=== PATIENT | female | born 1980 | race Caucasian/White ===

== ENCOUNTER 2024-07-31 09:03 | Inpatient (IN) | payer BC, OTHER ==
[2024-07-31] MEDS ORDERED: PITOCIN 30 UNITS/ LR 500 ML 30 UNITS/500 ML PLAST..BAG IV SCH (09:30)
[2024-07-31 10:01] LABS: Absolute Neutrophil Ct (ANC) 5.06 x10^3/uL (1.56-6.13); BASOPHIL % 0.3 % (0.1-1.2); Basophil (Absolute #) 0.02 x10^3/uL (0.01-0.08); Eosinophil % 0.9 % (0.7-5.8); Eosinophil (Absolute #) 0.06 x10^3/uL (0.04-0.36); Hematocrit 32.2 % (34.1-44.9); Hemoglobin 10.6 g/dL (11.2-15.7); IMMATURE GRAN # 0.04 x10^3u/L (0.001-0.031); IMMATURE GRAN % 0.6 % (0.001-0.429); Lymphocyte (Absolute #) 1.29 x10^3/uL (1.18-3.74); Lymphocytes % 19.2 % (19.3-51.7); Mean Cell Volume 89.2 fL (79.4-94.8); Mean Corpuscular Hemoglobin 29.4 pg (25.6-32.2); Mean Corpuscular Hgb Concent. 32.9 g/dL (32.2-35.5); Mean Platelet Volume 9.8 fL (9.4-12.3); Monocyte (Absolute #) 0.25 x10^3/uL (0.24-0.86); Monocytes % 3.7 % (4.7-12.5); Neutrophil % 75.3 % (34.0-71.1); Platelet Count 165 x10^3/uL (182-369); Red Blood Count 3.61 x10^6/uL (3.93-5.22); White Blood Count 6.7 x10^3/uL (3.98-10.04)
[2024-07-31 10:47] LABS: ABO TYPING A; Antibody Screen NEGATIVE (NEGATIVE); RH TYPING POSITIVE
[2024-07-31 10:55] LABS: ALBUMIN 3.7 g/dL (3.5-5.0); BILIRUBIN,TOTAL 0.6 mg/dL (0.2-1.3); Calcium 8.8 mg/dL (8.4-10.2); Creatinine 1 0.67 mg/dL (0.52-1.04); EST GLOMERULAR FILTRATION RATE 109.8 ML/MIN; Potassium 3.7 mmol/L (3.5-5.1); Uric Acid 4.6 mg/dL (2.6-6.0)
[2024-07-31 12:13] LABS: Amphetamine,Urine NEGATIVE (NEGATIVE); Barbiturate,Urine NEGATIVE (NEGATIVE); Benzodiazepine,Urine NEGATIVE (NEGATIVE); Cocaine,Urine NEGATIVE (NEGATIVE); Methadone,Urine NEGATIVE (NEGATIVE); Opiate,Urine NEGATIVE (NEGATIVE); PCP,Urine NEGATIVE (NEGATIVE); THC,Urine NEGATIVE (NEGATIVE)
[2024-07-31] MEDS: Lactated Ringers 1,000 ML IV SCH (16:15)
[2024-07-31] MEDS: CYTOTEC PO SCH (16:36)
[2024-07-31] MEDS ORDERED: BRETHINE 1 MG/ML SQ PRN (17:50)
[2024-07-31] MEDS: PITOCIN 30 UNITS/ LR 500 ML 30 UNITS/500 ML PLAST..BAG IV SCH (18:19)
[2024-07-31] MEDS: Trandate 100 MG PO SCH (21:43)
[2024-07-31] MEDS: OMNIPEN 2 GM*** 2 G in Sodium Chloride 100ML MINI-BAG PLUS 100 ML IV ONE (22:55)
[2024-08-01] MEDS: OMNIPEN 1 GM*** 1 GM in Sodium Chloride 100ML MINI-BAG PLUS 100 ML IV SCH (02:35)
[2024-08-01] MEDS ORDERED: STADOL 2 MG ONE (02:46)
[2024-08-01] MEDS: STADOL 2 MG IV PRN (02:54)
[2024-08-01] MEDS: Lactated Ringers 1,000 ML IV ONE (06:27)
[2024-08-01] MEDS: FENTANYL 2 MCG-BUPIV 0.125%-NS 250 ML Epidur 250 ML EPIDURAL SCH (07:05)
[2024-08-01] MEDS: Zofran 4 MG/2 ML VIAL IV PRN (09:18)
[2024-08-01 11:02] LABS: RPR Non Reactive (Non Reactive)
[2024-08-01] MEDS ORDERED: TRANEXAMIC 1,000 MG/100ML-NACL 1,000 MG/100 ML PIGGYBACK IV ONE (11:43)
[2024-08-01] MEDS ORDERED: Marcaine 0.5%/Epinephrine 10 ML ONE (13:49)
[2024-08-01] MEDS ORDERED: Xylocaine-Mpf 2% 5 Ml Vial ONE (13:49)
[2024-08-01] MEDS ORDERED: DEXMEDETOMIDINE 80 MCG/20ML-NS IV ONE (13:49)
[2024-08-01] MEDS: Ephedrine Sulfate 50 MG/ML IV PRN (14:04)
[2024-08-01] MEDS ORDERED: miSOPROStoL ONE (17:09)
[2024-08-01] MEDS ORDERED: miSOPROStoL PO ONE (17:10)
[2024-08-01] MEDS: Docusate Sodium 100 MG PO SCH (22:42)
[2024-08-01] MEDS: TUCKS TP PRN (23:30)
[2024-08-01] MEDS: Dermoplast Spray TP PRN (23:30)
[2024-08-01] MEDS: LANSINOH 40 GM TOP PRN (23:34)
[2024-08-02 02:22] VITALS: RESP 16
[2024-08-02] MEDS: Tums EX 750 MG PO PRN (02:29)
[2024-08-02] MEDS: TYLENOL EXTRA STRENGTH 500 MG PO PRN (03:54)
[2024-08-02 05:39] LABS: Absolute Neutrophil Ct (ANC) 9.53 x10^3/uL (1.56-6.13); BASOPHIL % 0.2 % (0.1-1.2); Basophil (Absolute #) 0.02 x10^3/uL (0.01-0.08); Eosinophil % 0.3 % (0.7-5.8); Eosinophil (Absolute #) 0.04 x10^3/uL (0.04-0.36); Hematocrit 27.9 % (34.1-44.9); Hemoglobin 9.1 g/dL (11.2-15.7); IMMATURE GRAN # 0.04 x10^3u/L (0.001-0.031); IMMATURE GRAN % 0.3 % (0.001-0.429); Lymphocytes % 15.7 % (19.3-51.7); Mean Cell Volume 88.9 fL (79.4-94.8); Mean Corpuscular Hgb Concent. 32.6 g/dL (32.2-35.5); Mean Platelet Volume 9.1 fL (9.4-12.3); Monocyte (Absolute #) 0.56 x10^3/uL (0.24-0.86); Monocytes % 4.6 % (4.7-12.5); Neutrophil % 78.9 % (34.0-71.1); Platelet Count 152 x10^3/uL (182-369); Red Blood Count 3.14 x10^6/uL (3.93-5.22); Red Cell Distribution Width 15.2 % (11.7-14.4); White Blood Count 12.1 x10^3/uL (3.98-10.04)
[2024-08-02] MEDS: FERREX 150 PO SCH (10:08)
[2024-08-02] MEDS: MOTRIN 400 MG PO PRN (10:09)
--- NOTE | 2024-08-02 10:21 | PCM.NOTE ---
Date and Time: 08/02/24 1019 Subjective Assessment: ppd 1 sp pt resting in bed doing well able to ambulate and tolerate diet vss afebrile abd; soft uterus; firm lochia; mild ext; no clubbing cyanosis or edema hgb; 9.1 a/p sp ppd 1 chronic htn will continue labetolol 100mg bid pt desires to be discharged home today should fu in office in 3 wks Objective Data Vital Signs: Vital Signs - 24 hr Temp Pulse Resp BP BP Pulse Ox 08/02/24 08:00 98.4 F 92 H 16 130/64 97 08/02/24 02:22 98.6 F 80 16 102/55 08/02/24 02:21 98.6 F 80 16 102/55 08/01/24 21:45 98.3 F 106 H 18 132/70 96 08/01/24 20:00 98.0 F 98 H 18 119/57 98 08/01/24 19:45 98.0 F 99 H 18 131/67 100 08/01/24 19:30 98.0 F 90 18 130/59 98 08/01/24 19:15 97.9 F 90 20 130/59 99 08/01/24 18:45 97.9 F 96 H 20 132/69 98 08/01/24 18:30 97.6 F 88 20 113/61 95 08/01/24 18:15 97.9 F 91 H 20 112/60 95 08/01/24 18:00 97.6 F 89 20 112/53 96 08/01/24 17:45 97.6 F 87 20 125/79 95 08/01/24 17:20 98.1 F 82 20 112/55 97 08/01/24 17:15 98.1 F 82 20 112/55 97 08/01/24 17:00 98.1 F 87 20 118/55 97 08/01/24 16:45 98.1 F 87 20 100/50 97 08/01/24 16:30 98.1 F 72 20 91/50 96 08/01/24 16:15 98.1 F 81 20 93/53 94 L 08/01/24 16:00 98.1 F 85 20 97 08/01/24 15:45 98.1 F 78 20 106/55 95 08/01/24 15:30 98.1 F 82 20 89/49 92 L 08/01/24 15:15 98.1 F 82 20 109/52 95 08/01/24 15:00 98.1 F 75 20 109/52 95 08/01/24 14:45 98.1 F 66 20 87/44 95 08/01/24 14:30 98.1 F 65 20 91/53 98 08/01/24 14:15 98.1 F 78 20 102/53 98 08/01/24 14:00 98.1 F 72 20 89/53 98 08/01/24 13:45 98.1 F 72 20 99/57 98 08/01/24 13:30 98.1 F 75 20 119/59 98 08/01/24 13:00 98.1 F 76 20 131/60 98 08/01/24 12:45 97.9 F 85 20 134/64 98 08/01/24 12:30 98.2 F 88 20 134/64 98 08/01/24 12:15 98.2 F 72 20 129/59 98 08/01/24 12:00 98.2 F 82 20 149/67 160/71 98 08/01/24 11:45 98.2 F 80 20 160/71 98 08/01/24 11:30 98.2 F 81 20 172/80 98 08/01/24 11:18 98.2 F 73 20 123/58 98 08/01/24 11:15 98.2 F 84 20 137/65 98 08/01/24 11:00 98.2 F 73 20 123/58 98 08/01/24 10:45 97.8 F 71 20 114/57 98 08/01/24 10:30 98.2 F 71 20 98/54 98 Pain Assessment - Last Documented Pain Intensity [Lower Anterior 0 ] Pain Intensity 3 Pain Scale Used 0-10 Pain Scale Intake and Output: Intake & Output 07/30/24 07/31/24 08/01/24 08/02/24 11:59 11:59 11:59 11:59 Int[place] 61815 6400 Output Total 1400 Balance 05227 5000 Weight 132.449 kg Lab Results: Lab Results-Last 24 Hours 07/31/24 08/02/24 Range/Units 09:55 05:35 WBC 12.1 H (3.98-10.04) x10^3/uL RBC 3.14 L (3.93-5.22) x10^6/uL Hgb 9.1 L (11.2-15.7) g/dL Hct 27.9 L (34.1-44.9) % MCV 88.9 (79.4-94.8) fL MCH 29.0 (25.6-32.2) pg MCHC 32.6 (32.2-35.5) g/dL RDW 15.2 H (11.7-14.4) % Plt Count 152 L (182-369) x10^3/uL MPV 9.1 L (9.4-12.3) fL Gran % 78.9 H (34.0-71.1) % Immature Gran % (Auto) 0.3 (0.001-0.429) % Nucleat RBC Rel Count 0.0 (0.00-0.2) % Eos # (Auto) 0.04 (0.04-0.36) x10^3/uL Immature Gran # (Auto) 0.04 H (0.001-0.031) x10^3u/L Absolute Lymphs (auto) 1.90 (1.18-3.74) x10^3/uL Absolute Monos (auto) 0.56 (0.24-0.86) x10^3/uL Absolute Nucleated RBC 0.00 (0.00-0.012) x10^3u/L Lymphocytes % 15.7 L (19.3-51.7) % Monocytes % 4.6 L (4.7-12.5) % Eosinophils % 0.3 L (0.7-5.8) % Basophils % 0.2 (0.1-1.2) % Absolute Granulocytes 9.53 H (1.56-6.13) x10^3/uL Basophils # 0.02 (0.01-0.08) x10^3/uL RPR Non Reactive (Non Reactive) Assessment/Plan (1) Vaginal delivery Current Visit: Yes Status: Acute Code(s): O80 - ENCOUNTER FOR FULL-TERM UNCOMPLICATED DELIVERY (2) Chronic hypertension affecting Current Visit: Yes Status: Acute Code(s): O10.919 - UNSP PRE-EXISTING HTN COMP , UNSP TRIMESTER
--- NOTE | 2024-08-02 10:26 | PCM.DS ---
Discharge Summary Date of Admission: 08/01/24 07:55 Admitting Physician: ELVIS CAMPOS DO Consults: Consults on Case 08/01/24 06:26 Notify Anesthesia Provider PRN Primary Care Provider: BECKIE ACE DO Allergies Allergies diphenhydramine [From Benadryl] Adverse Reaction (Mild, Verified 07/31/24 09:29) [facility] Hospital Summary - Hospital Course Hospital Course: pt is admitted at 37 wks gestation with chronic htn on labetolol 100mg bid and macrosomia for vaginal cytotec for which she received one dose on jul 31 and one dose of oral cytotec and continued to contract where pitocin was started on aug 01 and subsequently delivered on aug 01 live baby boy with nuchal cord x 1 reduced at 519 pm without complication. pt did receive epidural and was comfortable during her labor. during period hgb was stable at 9.1 and labetolol 100mg bid was restarted and at this time pt able to ambulate and tolerate diet and desires to be discharged home today. there was minimal bleeding noted after delivery and normal amount of bleeding this morning. denies complaints and all questions were answered to her satisfaction. pt advised to fu in office in 3 wks for care as she was also advised to continue her baby aspirin daily and call me if any issues may arise. - Vitals & Intake/Output Vital Signs: Vital Signs Temperature 98.4 F 08/02/24 08:00 Pulse Rate 92 H 08/02/24 08:00 Respiratory Rate 16 08/02/24 08:00 Blood Pressure 130/64 08/02/24 08:00 O2 Sat by Pulse Oximetry 97 08/02/24 08:00 Intake & Output: Intake & Output 07/30/24 07/31/24 08/01/24 08/02/24 11:59 11:59 11:59 11:59 Intake Total 78089 6400 Output Total 1400 Balance 12840 5000 Weight 132.449 kg - Lab Result Diagrams: 08/02/24 05:35 07/31/24 09:55 Lab Results-Last 24 Hrs: Lab Results-Last 24 Hours 07/31/24 08/02/24 Range/Units 09:55 05:35 WBC 12.1 H (3.98-10.04) x10^3/uL RBC 3.14 L (3.93-5.22) x10^6/uL Hgb 9.1 L (11.2-15.7) g/dL Hct 27.9 L (34.1-44.9) % MCV 88.9 (79.4-94.8) fL MCH 29.0 (25.6-32.2) pg MCHC 32.6 (32.2-35.5) g/dL RDW 15.2 H (11.7-14.4) % Plt Count 152 L (182-369) x10^3/uL MPV 9.1 L (9.4-12.3) fL Gran % 78.9 H (34.0-71.1) % Immature Gran % (Auto) 0.3 (0.001-0.429) % Nucleat RBC Rel Count 0.0 (0.00-0.2) % Eos # (Auto) 0.04 (0.04-0.36) x10^3/uL Immature Gran # (Auto) 0.04 H (0.001-0.031) x10^3u/L Absolute Lymphs (auto) 1.90 (1.18-3.74) x10^3/uL Absolute Monos (auto) 0.56 (0.24-0.86) x10^3/uL Absolute Nucleated RBC 0.00 (0.00-0.012) x10^3u/L Lymphocytes % 15.7 L (19.3-51.7) % Monocytes % 4.6 L (4.7-12.5) % Eosinophils % 0.3 L (0.7-5.8) % Basophils % 0.2 (0.1-1.2) % Absolute Granulocytes 9.53 H (1.56-6.13) x10^3/uL Basophils # 0.02 (0.01-0.08) x10^3/uL RPR Non Reactive (Non Reactive) Micro Results-Entire Visit: Microbiology 08/01/24 11:38 Urine Culture - Preliminary Catherized NO GROWTH TO DATE Final Diagnosis/Problem List - Final Discharge Diagnosis/Problem (1) Vaginal delivery Current Visit: Yes Status: Acute Code(s): O80 - ENCOUNTER FOR FULL-TERM UNCOMPLICATED DELIVERY (2) Chronic hypertension affecting Current Visit: Yes Status: Acute Code(s): O10.919 - UNSP PRE-EXISTING HTN COMP , UNSP TRIMESTER - Discharge Disposition: Home, Self-Care Condition: Stable Prescriptions: No Action Labetalol HCl 100 mg [Trandate 100 MG] 100 mg PO BID Aspirin 81 gm Chew [Baby Aspirin 81 mg Chew] 81 mg PO DAILY Fluticasone Propionate [Flonase Nasal] 16 gm NS DAILY Loratadine 10 mg [Claritin 10 mg] 10 mg PO DAILY Vit No.130/Iron/Folic [ Tablet] 1 tab PO DAILY Calcium Carb/Vit D3/Minerals [Calcium 600+D Plus Minerals Tb] 1 tab PO DAILY Potassium Citrate [Potassium] 99 mg PO DAILY Follow up with: BECKIE ACE DO [Primary Care Provider] - ELVIS CAMPOS DO [ACTIVE STAFF] - 3 weeks (should fu in office in 3 wks should call me for any issues that may arise)
[2024-08-02 16:32] VITALS: BP 143/72; PULSE 77; TEMP 98.3; O2SAT 96
== END 2024-08-02 20:35 | disposition home or self-care (01) | DRG 806 ==
LOC: OB 09:03 → OBSVTOIN 08-01 07:55 → OB 08-01 07:55
PROVIDERS: ADMIT Obstetrics & Gynecology; ATTEND Obstetrics & Gynecology
PROC: 10E0XZZ Delivery of Products of Conception, External Approach (ICD-10-PCS; principal; 2024-08-01)
DX: O69.81X0 Labor and delivery complicated by cord around neck, without compression, not applicable or unspecified (principal); O10.92 Unspecified pre-existing hypertension complicating childbirth; Z37.0 Single live birth; Z3A.37 37 weeks gestation of pregnancy; O36.63X0 Maternal care for excessive fetal growth, third trimester, not applicable or unspecified
CPT/HCPCS: 36415; 59400; 80053; 80307; 83615; 84550; 85025; 86592; 86850; 86900; 86901; 87086; G0379; J0290; J0595; J2405; J2590; A9270-GY

== ENCOUNTER 2024-08-04 14:57 | Inpatient (IN) | payer BC, OTHER ==
[2024-08-04] MEDS: Trandate 100 MG PO ONE ×2 (15:14→17:13)
[2024-08-04 15:32] LABS: Absolute Neutrophil Ct (ANC) 4.03 x10^3/uL (1.56-6.13); BASOPHIL % 0.5 % (0.1-1.2); Basophil (Absolute #) 0.03 x10^3/uL (0.01-0.08); Eosinophil % 2.7 % (0.7-5.8); Eosinophil (Absolute #) 0.17 x10^3/uL (0.04-0.36); Hematocrit 30.7 % (34.1-44.9); IMMATURE GRAN # 0.03 x10^3u/L (0.001-0.031); IMMATURE GRAN % 0.5 % (0.001-0.429); Lymphocyte (Absolute #) 1.67 x10^3/uL (1.18-3.74); Lymphocytes % 26.8 % (19.3-51.7); Mean Corpuscular Hgb Concent. 32.6 g/dL (32.2-35.5); Mean Platelet Volume 9.1 fL (9.4-12.3); Monocyte (Absolute #) 0.29 x10^3/uL (0.24-0.86); Monocytes % 4.7 % (4.7-12.5); Neutrophil % 64.8 % (34.0-71.1); Platelet Count 181 x10^3/uL (182-369); Red Blood Count 3.45 x10^6/uL (3.93-5.22); Red Cell Distribution Width 14.8 % (11.7-14.4); White Blood Count 6.2 x10^3/uL (3.98-10.04)
[2024-08-04 15:47] LABS: ALBUMIN 3.6 g/dL (3.5-5.0); ANION GAP 12.6 MEQ/L (5-15); BILIRUBIN,TOTAL 0.4 mg/dL (0.2-1.3); Calcium 9.4 mg/dL (8.4-10.2); Creatinine 1 0.67 mg/dL (0.52-1.04); EST GLOMERULAR FILTRATION RATE 109.8 ML/MIN; Uric Acid 4.6 mg/dL (2.6-6.0)
[2024-08-04 16:01] LABS: Appearance Clear (Clear); Bacteria None Seen /HPF (None Seen); Bilirubin Negative (Negative); Blood Large (Negative); Epithelial Cells None Seen /HPF (None Seen); Glucose, Urine Negative (Negative); Hyaline Casts NONE SEEN /LPF (0-2); Ketones Negative (Negative); Leukocyte Esterase Small (Negative); Nitrite Negative (Negative); Protein,Urine Dip 30 (Negative); RBC >100 /HPF (0-5); WBC 21-50 /HPF (0-5)
[2024-08-04 16:07] LABS: Creatinine, Urine Random 33.6 mg/dl; Protein Creatinine Ratio, Ran. 2.11 mg/mg (0.0-0.15)
[2024-08-04 18:05] LABS: Creatinine, Urine Random 13.4 mg/dl; Protein Creatinine Ratio, Ran. 1.04 mg/mg (0.0-0.15)
[2024-08-04] MEDS: Magnesium Sulfate 40 Gm/1000 Ml H2O Premix*** 1,000 ML IV SCH (19:17)
[2024-08-04] MEDS: Lactated Ringers 1,000 ML IV SCH (19:17)
[2024-08-04 19:18] LABS: INR 0.88 (0.8-3.0); PROTIME 9.7 SECONDS (9.4-12.5)
[2024-08-05] MEDS: TYLENOL EXTRA STRENGTH 500 MG PO PRN (03:17)
[2024-08-05] MEDS: Trandate 100 MG PO SCH (06:13)
[2024-08-05] MEDS: MOTRIN 600 MG PO PRN (12:34)
[2024-08-05] MEDS: Adalat CC 30 MG TABLET PO ONE ×2 (13:40→19:58)
[2024-08-06] MEDS: Trandate 100 MG PO SCH ×2 (06:02→14:10)
--- NOTE | 2024-08-06 07:44 | PCM.NOTE ---
Date and Time: 08/06/24 0739 Subjective Assessment: pt admitted for preeclampsia sp on august 01 and was seen on aug 04 for evaluation in labor delivery and was noted having elevated bp with elevated prot/cr. currently doing well after having been placed on labetolol 300mg tid and just placed on procardia 30mg xl bid starting yesterday. states feeling well at this time. vss afebrile abd; soft ext; no clubbing cyanosis or edema a/p sp with preeclampsia magnesium discontinued yesterday procardia 30mg xl added to regimen yesterday and bp stable thus far will continue labetolol 300mg tid if bp stable throughout the day today will consider discharge later this afternoon with fu in office this sunday Objective Data Vital Signs: Vital Signs - 24 hr Temp Pulse Resp BP BP Pulse Ox 08/06/24 05:10 72 18 132/64 96 08/06/24 01:01 97.4 F 76 18 106/55 97 08/06/24 00:00 97.6 F 76 18 124/61 08/05/24 22:55 76 18 124/61 08/05/24 21:08 72 18 155/78 08/05/24 20:00 97.6 F 74 20 160/75 97 08/05/24 14:00 68 18 153/77 08/05/24 11:15 18 156/73 08/05/24 09:00 77 18 130/63 08/05/24 07:58 68 107/61 Pain Assessment - Last Documented Pain Intensity 3 Pain Scale Used 0-10 Pain Scale Intake and Output: Intake & Output 08/03/24 08/04/24 08/05/24 08/06/24 11:59 11:59 11:59 11:59 Intake Total 2339 1800 Output Total 3500 Balance -1161 1800 Weight 118.367 kg Assessment/Plan (1) Preeclampsia in period Current Visit: Yes Status: Acute Code(s): O14.95 - UNSPECIFIED PRE- ECLAMPSIA, COMPLICATING THE PUERPERIUM
[2024-08-06] MEDS: Adalat CC 30 MG TABLET PO ONE (08:01)
[2024-08-06 09:01] VITALS: TEMP 97.8
[2024-08-06 13:28] LABS: Hematocrit 32.1 % (34.1-44.9); Hemoglobin 10.2 g/dL (11.2-15.7); Mean Cell Volume 90.4 fL (79.4-94.8); Mean Corpuscular Hemoglobin 28.7 pg (25.6-32.2); Mean Corpuscular Hgb Concent. 31.8 g/dL (32.2-35.5); Mean Platelet Volume 9.1 fL (9.4-12.3); Platelet Count 202 x10^3/uL (182-369); Red Blood Count 3.55 x10^6/uL (3.93-5.22); Red Cell Distribution Width 14.7 % (11.7-14.4); White Blood Count 6.2 x10^3/uL (3.98-10.04)
[2024-08-06 13:44] LABS: ALBUMIN 3.6 g/dL (3.5-5.0); ANION GAP 15.2 MEQ/L (5-15); BILIRUBIN,TOTAL 0.4 mg/dL (0.2-1.3); Calcium 8.9 mg/dL (8.4-10.2); Creatinine 1 0.71 mg/dL (0.52-1.04); EST GLOMERULAR FILTRATION RATE 106.8 ML/MIN; Potassium 4.4 mmol/L (3.5-5.1); Total Protein 6.8 g/dL (6.3-8.2)
--- NOTE | 2024-08-06 14:13 | XRAY ---
Indication: Headache. Dizziness. Blurred vision. Multiple contiguous axial images obtained through the head prior to and following 80 cc Isovue 370 contrast. Comparison: None Ventriculosulcal pattern appears symmetric. No acute intracranial hemorrhage, abnormal extra-axial fluid collection, or mass effect. Postcontrast images are negative for abnormal enhancing intra or extra-axial mass. Fourth ventricle is midline without hydrocephalus. Lehman-white matter differentiation preserved. Bony calvarium intact. Visualized paranasal sinuses and mastoid air cells are clear. Impression: Normal CT head with and without contrast exam.
[2024-08-06 16:56] VITALS: BP 134/67; PULSE 75; RESP 16; O2SAT 95
--- NOTE | 2024-08-06 17:01 | PCM.DS ---
Discharge Summary Date of Admission: 08/04/24 18:47 Admitting Physician: ELVIS CAMPOS DO Consults: Consults on Case 08/04/24 18:46 Notify Physician ROUTINE Primary Care Provider: BECKIE ACE DO Allergies Allergies diphenhydramine [From Benadryl] Adverse Reaction (Mild, Verified 07/31/24 09:29) [facility] Hospital Summary - Hospital Course Hospital Course: PT IS SP ON AUG 01 AND DURING EVALUATION ON AUG 04 WITH HER AND BABY IN LABOR DELIVERY WAS NOTED HAVING ELEVATED BP 170'S/90'S AND HAD ALREADY BEEN ON LABETOLOL 100MG BID. LABS WERE DONE INDICATING ELEVATED PROT/CR THUS HAVING DEVELOPED PREECLMAPSIA. PT WAS STARTED ON MAG ON AUG 04 AND WAS ON FOR 12 HRS BEFORE DISCONTINUED SECONDARY TO MUCH IMPROVED BP WHEN LABETOLOL HAD BEEN INCREASED TO 200 TID. PT LATER THAT DAY WAS NOTED HAVING INCREASED BP AND LABETOLOL WAS INCREASED TO 300MG TID WELL STARTING PROCARDIA 30MG XL BID. ON AUG 05 PT WAS NOTED HAVING CONTINUED ALVAREZ WITH VISUAL DISTURBANCE AND CT SCAN ORDERED ON AUG 06 DONE AND WAS NORMAL. BP REMAINED STABLE THROUGHOUT THE DAY ON AUG 06 AND NOW STABLE FOR DISCHARGE WITH FU THIS COMING SUNDAY IN MY OFFICE. ALL QUESTIONS ANSWERED TO HER SATISFACTION. - Vitals & Intake/Output Vital Signs: Vital Signs Temperature 97.8 F 08/06/24 15:30 Pulse Rate 75 08/06/24 15:30 Respiratory Rate 16 08/06/24 15:30 Blood Pressure 134/67 08/06/24 15:30 O2 Sat by Pulse Oximetry 95 08/06/24 15:30 Intake & Output: Intake & Output 08/04/24 08/05/24 08/06/24 08/07/24 11:59 11:59 11:59 11:59 Intake Total 2339 1800 Output Total 3500 Balance -1161 1800 Weight 118.367 kg - Lab Result Diagrams: 08/06/24 13:26 08/06/24 13:26 Lab Results-Last 24 Hrs: Lab Results-Last 24 Hours 08/06/24 08/06/24 Range/Units 13:26 13:26 WBC 6.2 (3.98-10.04) x10^3/uL RBC 3.55 L (3.93-5.22) x10^6/uL Hgb 10.2 L (11.2-15.7) g/dL Hct 32.1 L (34.1-44.9) % MCV 90.4 (79.4-94.8) fL MCH 28.7 (25.6-32.2) pg MCHC 31.8 L (32.2-35.5) g/dL RDW 14.7 H (11.7-14.4) % Plt Count 202 (182-369) x10^3/uL MPV 9.1 L (9.4-12.3) fL Sodium 142 (135-145) mmol/L Potassium 4.4 (3.5-5.1) mmol/L Chloride 111 H (98-107) mmol/L Carbon Dioxide 20 L (22-30) mmol/L Anion Gap 15.2 H (5-15) MEQ/L BUN 12 (7-17) mg/dL Creatinine 0.71 (0.52-1.04) mg/dL Estimated GFR 106.8 ML/MIN Glucose 89 (74-106) mg/dL Calcium 8.9 (8.4-10.2) mg/dL Total Bilirubin 0.40 (0.2-1.3) mg/dL AST 26 (14-36) U/L ALT 25 (0-35) U/L Alkaline Phosphatase 78 (38-126) U/L Serum Total Protein 6.8 (6.3-8.2) g/dL Albumin 3.6 (3.5-5.0) g/dL Micro Results-Entire Visit: Microbiology 08/04/24 15:30 Urine Culture - Final Urine, Void MIXED DAGMAR; 3 OR MORE TYPES. NO PREDOMINANT ORGANISM. NO FURTHER WORKUP. PLEASE RESUBMIT IF CLINICALLY INDICATED. - Radiology Exams Ordered Rad Exams-Entire Visit: Radiology Procedures Category Date Time Status HEAD W/WO CONTRAST [CT] Stat Exams 08/06/24 13:21 Completed Final Diagnosis/Problem List - Final Discharge Diagnosis/Problem (1) Preeclampsia in period Current Visit: Yes Status: Acute Code(s): O14.95 - UNSPECIFIED PRE- ECLAMPSIA, COMPLICATING THE PUERPERIUM - Discharge Disposition: Home, Self-Care Condition: Stable Prescriptions: No Action Labetalol HCl 100 mg [Trandate 100 MG] 100 mg PO BID Aspirin 81 gm Chew [Baby Aspirin 81 mg Chew] 81 mg PO DAILY Fluticasone Propionate [Flonase Nasal] 16 gm NS DAILY Loratadine 10 mg [Claritin 10 mg] 10 mg PO DAILY Vit No.130/Iron/Folic [ Tablet] 1 tab PO DAILY Calcium Carb/Vit D3/Minerals [Calcium 600+D Plus Minerals Tb] 1 tab PO DAILY Potassium Citrate [Potassium] 99 mg PO DAILY Follow up with: BECKIE ACE DO [Primary Care Provider] - ELVIS CAMPOS DO [ACTIVE STAFF] - 08/11/24
== END 2024-08-06 17:30 | disposition home or self-care (01) | DRG 776 ==
LOC: MED SURG 14:57 → OBSVTOIN 18:47 → OB 19:59
PROVIDERS: ADMIT Obstetrics & Gynecology; ATTEND Obstetrics & Gynecology
DX: O14.95 Unspecified pre-eclampsia, complicating the puerperium (principal)
CPT/HCPCS: 36415; 70470; 80053; 81001; 82570; 83615; 83735; 84156; 84550; 85025; 85027; 85610; 85730; 87086; G0378; A9270-GY